=== PATIENT | male | born 1970 | race Two or more races ===

== ENCOUNTER 2021-11-22 19:31 | Inpatient (IN) | payer MEDICAID, OTHER ==
[~2021-11-22] VITALS: Ht 160 cm; Wt 72.5 kg
[~2021-11-22 19:31] MED LIST: AGELESS MALE PO; FORMULA 303; LOPE2CAP PO; MULTCAP45; PAXIL PO; TRAM50TA2 PO
[2021-11-22] MEDS ORDERED: ATROPINE SULFATE 1 MG/1 ML VIAL ONE (19:53)
[2021-11-22] MEDS ORDERED: ATROPINE SULF 1 MG/10ml SYR IV ONE (20:15)
[2021-11-22] MEDS ORDERED: PANTOPRAZOLE 80 MG in SODIUM CHL 0.9% 100 ML IV ONE (20:30)
[2021-11-22] MEDS ORDERED: PANTOPRAZOLE 40mg/50ML NS AE 50 ML IV ONE (20:30)
[2021-11-22 20:32] LABS: Eosinophils # (auto) 0 10 ^3/uL (0-0.8); Hemoglobin 9.7 g/dL (13.5-17.5)
[2021-11-22 20:34] LABS: Basophils # (auto) 0 10 ^3/uL (0-0.2); Basophils % (auto) 0.4 % (0.0-2.0); Eosinophils % (auto) 0.1 % (0.0-7.0); Hematocrit 30.5 % (41.0-53.0); Lymphocytes # (auto) 2.4 10 ^3/uL (0.4-5.4); Lymphocytes % (auto) 22.9 % (10.0-50.0); Mean Corpuscular Hemoglobin 24.6 pg (28.0-32.0); Mean Corpuscular Hgb Conc. 31.7 g/dL (32.0-36.0); Mean Corpuscular Volume 77.6 fL (80.0-100.0); Monocytes # (auto) 0.9 10 ^3/uL (0-1.3); Monocytes % (auto) 8.4 % (0.0-12.0); Neutrophils # (auto) 7.2 10 ^3/uL (1.6-8.6); Neutrophils % (auto) 68.2 % (37.0-80.0); Nucleated Red Blood Cells % 0.1 %; Red Blood Cells 3.93 10^6/uL (4.5-5.90); Red Cell Distribution Width 15.6 % (11.8-14.3); White Blood Cell 10.5 10^3/uL (4.4-10.8)
[2021-11-22 20:49] LABS: INR 1.13 (0.9-1.15); Partial Thromboplastin Time 24.7 sec (23.6-33.0)
[2021-11-22 20:50] LABS: Albumin 2.9 g/dL (3.4-5.0); Calcium 7.6 mg/dL (8.5-10.1); Potassium 3.2 mmol/L (3.5-5.1)
[2021-11-22 20:52] LABS: BUN/Creatinine Ratio 22.4
[2021-11-22 20:54] LABS: Bilirubin, Total 0.3 mg/dL (0.2-1.0); Total Protein 5.7 g/dL (6.4-8.2)
[2021-11-22] MEDS ORDERED: SODIUM CHLORIDE 0.9% 1,000 ML IV ONE (22:00)
[2021-11-22 23:14] LABS: Urine Bacteria NONE SEEN /hpf (None Seen); Urine Blood 1+ /uL (Negative); Urine Mucus FEW (None Seen); Urine Specific Gravity 1.039 (1.001-1.035); Urine WBC 2 /hpf (0 - 3)
[2021-11-22 23:36] LABS: Hemoglobin 9.3 g/dL (13.5-17.5)
[2021-11-22 23:38] LABS: Hematocrit 29.8 % (41.0-53.0)
[2021-11-23] MEDS ORDERED: fentaNYL CITRATE 100 MCG/2 ML VL IV ONE (03:45)
[2021-11-23] MEDS ORDERED: SODIUM CHLORIDE 0.9% 1,000 ML IV ONE (05:30)
[2021-11-23] MEDS ORDERED: NITROGLYCERIN 0.4 MG SL TAB SL PRN (06:45)
[2021-11-23] MEDS ORDERED: MORPHINE SULFATE INJ 2 MG/ml SYRG IV PRN (06:45)
[2021-11-23] MEDS ORDERED: ONDANSETRON HCL 4 MG/2 ML VIAL IV PRN (06:45)
[2021-11-23] MEDS ORDERED: CALCIUM GLUC 1,000mg/50ml-NS 50 ML IV ONE (06:45)
[2021-11-23] MEDS ORDERED: POTASSIUM CHL 20 Meq TABLET PO ONE (06:45)
[2021-11-23] MEDS ORDERED: KETOROLAC TROMETH 30 MG/ML 1ML VIAL IV ONE ×2 (09:00→23:00)
[2021-11-23] MEDS: PANTOPRAZOLE 40 MG TAB PO SCH (09:26)
[2021-11-23] MEDS: lamoTRIgine 25 MG TAB PO SCH ×2 (09:29→22:01)
[2021-11-23] MEDS: AZITHROMYCIN 500MG/ 250ML 250 ML IV SCH (09:37)
[2021-11-23] MEDS ORDERED: lamoTRIgine 25 MG TAB PO SCH (10:00)
[2021-11-23] MEDS: OXYCODONE W/ ACETAMINOPHEN 5/325MG TABLET PO PRN ×2 (13:53→18:06)
[2021-11-23 13:55] LABS: Alcohol, Urine < 3.0 mg/dL (0-10); Amphetamine Screen, Urine NEGATIVE (NEGATIVE); Barbiturate Scree,Urine NEGATIVE (NEGATIVE); Benzodiazephine Screen, Urine NEGATIVE (NEGATIVE); Cannabinoid Screen, Urine POSITIVE (NEGATIVE); Cocaine Screen, Urine NEGATIVE (NEGATIVE); Phencyclidine Screen, Urine NEGATIVE (NEGATIVE)
[2021-11-23 14:03] LABS: Opiate Scree,Urine POSITIVE (NEGATIVE)
[2021-11-23 17:33] VITALS: BP 132/85
[2021-11-23 17:52] VITALS: BP 132/85
[2021-11-23] MEDS ORDERED: PERCOT PO (18:53)
[2021-11-23] MEDS ORDERED: OXY20CRT PO (18:53)
[2021-11-23] MEDS ORDERED: LORazepam 2MG/ML-1ML VIAL IV PRN (19:30)
[2021-11-23] MEDS ORDERED: HYDROcodone-ACET 10/325MG TAB PO PRN (19:45)
[2021-11-23 22:00] VITALS: BP 118/71
[2021-11-24] MEDS ORDERED: TEMAZEPAM 15 MG CAP PO ONE ×2 (01:00→21:15)
[2021-11-24] MEDS ORDERED: OXYCODONE W/ ACETAMINOPHEN 5/325MG TABLET PO PRN (02:30)
[2021-11-24 05:00] VITALS: BP 111/73
[2021-11-24] MEDS: OXYCODONE W/ ACETAMINOPHEN 5/325MG TABLET PO PRN ×3 (05:10→16:19)
[2021-11-24 05:59] LABS: Basophils # (auto) 0.1 10 ^3/uL (0-0.2); Eosinophils # (auto) 0.1 10 ^3/uL (0-0.8); Monocytes # (auto) 0.6 10 ^3/uL (0-1.3); White Blood Cell 7.9 10^3/uL (4.4-10.8)
[2021-11-24 06:01] LABS: Hematocrit 30.4 % (41.0-53.0); Hemoglobin 9.8 g/dL (13.5-17.5); Lymphocytes # (auto) 2.8 10 ^3/uL (0.4-5.4); Lymphocytes % (auto) 36.1 % (10.0-50.0); Mean Corpuscular Hemoglobin 24.6 pg (28.0-32.0); Mean Corpuscular Hgb Conc. 32.2 g/dL (32.0-36.0); Mean Corpuscular Volume 76.5 fL (80.0-100.0); Monocytes % (auto) 7.3 % (0.0-12.0); Neutrophils # (auto) 4.3 10 ^3/uL (1.6-8.6); Neutrophils % (auto) 54.6 % (37.0-80.0); Nucleated Red Blood Cells % 0.2 %; Red Blood Cells 3.97 10^6/uL (4.5-5.90); Red Cell Distribution Width 15.6 % (11.8-14.3)
[2021-11-24 06:15] LABS: Calcium 8.3 mg/dL (8.5-10.1); Potassium 3.3 mmol/L (3.5-5.1)
[2021-11-24 06:20] LABS: BUN/Creatinine Ratio 15.1; Bilirubin, Total 0.3 mg/dL (0.2-1.0); Total Protein 6.1 g/dL (6.4-8.2)
[2021-11-24 09:00] VITALS: BP 135/88
[2021-11-24] MEDS: PANTOPRAZOLE 40 MG TAB PO SCH (10:44)
[2021-11-24] MEDS: lamoTRIgine 25 MG TAB PO SCH ×2 (10:45→21:49)
[2021-11-24] MEDS: AZITHROMYCIN 500MG/ 250ML 250 ML IV SCH (10:50)
[2021-11-24 13:00] VITALS: BP 132/78
[2021-11-24 16:40] VITALS: BP 132/87
[2021-11-24] MEDS ORDERED: TEMAZEPAM 15 MG CAP PO PRN (21:45)
[2021-11-24] MEDS: oxyCODONE ER 20 MG TAB PO SCH (21:50)
[2021-11-24 22:00] VITALS: BP 134/88
[2021-11-25] MEDS: OXYCODONE W/ ACETAMINOPHEN 5/325MG TABLET PO PRN ×2 (03:19→13:52)
[2021-11-25 05:00] VITALS: BP 124/87
[2021-11-25 08:12] VITALS: BP 134/92
[2021-11-25] MEDS ORDERED: LIDOCAINE VISCOUS 2% 15ML UD ONE (08:40)
[2021-11-25] MEDS ORDERED: MORPHINE SULFATE 4 MG/ML SYR/VIAL IV PRN (09:15)
[2021-11-25] MEDS ORDERED: ePHEDrine SULFATE 50 MG/ML AMP IV PRN (09:15)
[2021-11-25] MEDS ORDERED: MIDAZOLAM HCL 2MG/2ML 2ml VIAL (1mg/ml) IV PRN (09:15)
[2021-11-25] MEDS ORDERED: LABETALOL HCL 5 MG/ML 4ML SYRINGE IV PRN (09:15)
[2021-11-25] MEDS ORDERED: ONDANSETRON HCL 4 MG/2 ML VIAL IV PRN (09:15)
[2021-11-25] MEDS ORDERED: HYDROmorphone HCL 2 MG/ML VL/or syr IV PRN (09:15)
[2021-11-25] MEDS ORDERED: PANTOPRAZOLE 40 MG TAB PO SCH (10:00)
[2021-11-25] MEDS: lamoTRIgine 25 MG TAB PO SCH (10:28)
[2021-11-25] MEDS: SUCRALFATE 1 GM/10 ML ORAL SUSP PO SCH ×2 (10:28→16:13)
[2021-11-25] MEDS: oxyCODONE ER 20 MG TAB PO SCH (10:29)
[2021-11-25] MEDS: AZITHROMYCIN 500MG/ 250ML 250 ML IV SCH (10:29)
[2021-11-25] MEDS ORDERED: SUCR1TAB PO (10:49)
[2021-11-25] MEDS ORDERED: PANT40T PO (10:49)
[2021-11-25] MEDS ORDERED: OXY10CRT PO (10:49)
[2021-11-25 12:39] VITALS: BP 135/86
[2021-11-25] MEDS ORDERED: POTASSIUM CHL 20 Meq TABLET PO ONE (15:15)
== END 2021-11-25 17:00 | disposition home or self-care (01) | DRG 201 ==
LOC: ER 19:31 → TELE 11-23 06:32 → TELE-WESTW 11-23 14:57
PROVIDERS: ADMIT Nurse Practitioner; ATTEND Family Medicine
PROC: 0DB78ZX Excision of Stomach, Pylorus, Via Natural or Artificial Opening Endoscopic, Diagnostic (ICD-10-PCS; principal; 2021-11-25 08:48)
DX: R00.1 Bradycardia, unspecified (principal); G93.41 Metabolic encephalopathy; E43 Unspecified severe protein-calorie malnutrition; J18.9 Pneumonia, unspecified organism; I95.9 Hypotension, unspecified; K26.9 Duodenal ulcer, unspecified as acute or chronic, without hemorrhage or perforation; E86.0 Dehydration; D64.9 Anemia, unspecified; D50.9 Iron deficiency anemia, unspecified; F17.200 Nicotine dependence, unspecified, uncomplicated; E87.6 Hypokalemia; M51.36 Other intervertebral disc degeneration, lumbar region; Z20.822 Contact with and (suspected) exposure to COVID-19; M50.30 Other cervical disc degeneration, unspecified cervical region; K29.80 Duodenitis without bleeding; K29.70 Gastritis, unspecified, without bleeding; F32.A Depression, unspecified; F41.9 Anxiety disorder, unspecified; M19.90 Unspecified osteoarthritis, unspecified site; G89.29 Other chronic pain; N40.0 Benign prostatic hyperplasia without lower urinary tract symptoms; Z83.3 Family history of diabetes mellitus; Z68.28 Body mass index [BMI] 28.0-28.9, adult; Z87.442 Personal history of urinary calculi
CPT/HCPCS: 36415; 43239; 70450; 70551; 71045; 71260; 71275; 72148; 74177; 80053; 80307; 81001; 83605; 83690; 83735; 83880; 84443; 84484; 85014; 85018; 85025; 85379; 85610; 85730; 86850; 86900; 86901; 93005; 93306; 93970; 95819; 96361; 96365; 96367; 96368; 96375; 99291; C9113; G0378; J0461; J1885

== ENCOUNTER 2021-11-27 20:52 | Emergency (ER) | payer MEDICAID ==
[~2021-11-27] VITALS: Ht 170.2 cm; Wt 72.6 kg
[~2021-11-27 20:52] MED LIST changes: +OXY10CRT PO; +OXY20CRT PO; +PANT40T PO; +PERCOT PO; +SUCR1TAB PO
[2021-11-27 22:11] LABS: Basophils # (auto) 0.1 10 ^3/uL (0-0.2); Eosinophils # (auto) 0 10 ^3/uL (0-0.8); Hemoglobin 7.9 g/dL (13.5-17.5); Lymphocytes # (auto) 2.6 10 ^3/uL (0.4-5.4); Monocytes # (auto) 0.7 10 ^3/uL (0-1.3)
[2021-11-27 22:13] LABS: Basophils % (auto) 0.7 % (0.0-2.0); Eosinophils % (auto) 0.2 % (0.0-7.0); Hematocrit 25.4 % (41.0-53.0); Mean Corpuscular Hemoglobin 24.1 pg (28.0-32.0); Mean Corpuscular Volume 77.6 fL (80.0-100.0); Neutrophils # (auto) 8.4 10 ^3/uL (1.6-8.6); Neutrophils % (auto) 71.1 % (37.0-80.0); Nucleated Red Blood Cells % 0.2 %; Red Blood Cells 3.27 10^6/uL (4.5-5.90); Red Cell Distribution Width 16.2 % (11.8-14.3); White Blood Cell 11.8 10^3/uL (4.4-10.8)
[2021-11-27 22:35] LABS: BUN/Creatinine Ratio 36.1; Potassium 3.6 mmol/L (3.5-5.1)
[2021-11-27 22:36] LABS: Albumin 3.2 g/dL (3.4-5.0); Calcium 8.6 mg/dL (8.5-10.1); Magnesium 1.8 mg/dL (1.6-2.6)
[2021-11-27 22:39] LABS: Bilirubin, Total 0.2 mg/dL (0.2-1.0); Total Protein 6.2 g/dL (6.4-8.2)
[2021-11-27 23:47] LABS: INR 1.06 (0.9-1.15)
[2021-11-28 01:45] VITALS: BP 133/86
== END 2021-11-28 02:33 | disposition left against medical advice (07) ==
LOC: EDBD 20:52 → ER 20:52
DX: R55 Syncope and collapse (principal); F41.9 Anxiety disorder, unspecified; F32.9 Major depressive disorder, single episode, unspecified; F17.210 Nicotine dependence, cigarettes, uncomplicated; Z87.442 Personal history of urinary calculi; Z53.21 Procedure and treatment not carried out due to patient leaving prior to being seen by health care provider
CPT/HCPCS: 36415; 70450; 71045; 72125; 80053; 83735; 84484; 85025; 85610; 85730

== ENCOUNTER 2024-06-22 08:36 | Inpatient (IN) | payer MEDICAID ==
[~2024-06-22] VITALS: Ht 172.7 cm; Wt 72.7 kg
[2024-06-22 09:22] LABS: Basophils # (auto) 0.1 10 ^3/uL (0-0.2)
--- NOTE | 2024-06-22 09:22 | ED.PDOC ---
Altered Mental Status HPI Comments 53-year-old male brought in by EMS presents with a chief complaint of altered level of consciousness x onset this morning. According to EMS family found patient altered this morning. Last known well time was this morning at 1:00 a.m., patient is now presenting A&O x2. Is normally GCS of 15 at baseline. Presenting with expressive aphasia, confused, restless, is tachycardic, and is shaking. Patient unable to provide clear details of his current symptoms or timeline of events leading up to his arrival. Chief Complaint: ALOC Time Seen by MD: 08:50 Primary Care Provider: UNKNOWN Reviewed Notes: Medications, Allergies Allergies: Coded Allergies: NO KNOWN ALLERGIES (Unverified , 01/14/11) Home Meds Active Scripts Oxycodone Hcl (OxyCONTIN ER Tablet) 10 Mg Tb, 2 TAB PO BID, #40 TAB Prov:JONNIE CASAREZ MD 11/25/21 Sucralfate (Sucralfate) 1 Gm Tab, 1 GM PO Q6HR, #60 TAB Prov:JONNIE CASAREZ MD 11/25/21 Pantoprazole Sodium Sesquihydr (Pantoprazole Sodium) 40 Mg Tab, 40 MG PO BID, #60 TAB Prov:JONNIE CASAREZ MD 11/25/21 Reported Medications Oxycodone W/ Acetaminophen (Percocet 5/325MG) 1 Tab Tb, 1 TAB PO BID, #60 TAB 11/23/21 Oxycodone Hcl (OxyCONTIN ER Tablet) 20 Mg Tb, 30 MG PO BID, TAB 11/23/21 Loperamide Hcl (Loperamide Hcl) 2 Mg Cap, 2 MG PO PRN 11/08/11 Multiple Vitamin (Multivitamins) Cap 11/08/11 [Formula 303] No Conflict Check 11/08/11 [Ageless Male] 800 MG CAP No Conflict Check, 800 MG PO DAILY 11/08/11 [Paxil] 40 MG TAB No Conflict Check, 40 MG PO DAILY 11/08/11 Tramadol Hcl (Tramadol Hcl) 50 Mg Tab, 50 MG PO PRN 11/08/11 Information Source: Emergency Med Personnel Mode of Arrival: EMS Severity: Moderate, Unable to Care for Self Timing: Hours Duration: Since onset Prehospital treatment: None Quality: Decreased Alertness, Change in Behavior, Confusion Recent: None History of: CVA Associated Signs and Symptoms: None Past Medical History PAST MEDICAL HISTORY: Anxiety, Arthritis, CVA, Depression, Kidney Stones Surgical History: Denies all surgeries Family History Family History: Unknown Social History Smoker: Cigarettes, Greater Than 1 Pack/Day Alcohol: Occasionally Drugs: Denies Drug Use Lives In: Home Constitutional: denies: chills, diaphoresis, fatigue, fever, malaise, sweats, weakness, others EENTM: denies: blurred vision, double vision, ear bleeding, ear discharge, ear drainage, ear pain, ear ringing, eye pain, eye redness, hearing loss, mouth pain, mouth swelling, nasal discharge, nose bleeding, nose congestion, nose pain, photophobia, tearing, throat pain, throat swelling, voice changes, others Respiratory: denies: cough, hemoptysis, orthopnea, SOB at rest, shortness of breath, SOB with excertion, stridor, wheezing, others Cardiovascular: denies: chest pain, dizzy spells, diaphoresis, Dyspnea on exertion, edema, irregular heart beat, left arm pain, lightheadedness, palpitations, PND, syncope, others Gastrointestinal: denies: abdomen distended, abdominal pain, blood streaked bowels, constipated, diarrhea, dysphagia, difficulty swallowing, hematemesis, melena, nausea, poor appetite, poor fluid intake, rectal bleeding, rectal pain, vomiting, others Genitourinary: denies: burning, dysuria, flank pain, frequency, hematuria, incontinence, penile discharge, penile sore, pain, testicle pain, testicle swelling, urgency, others Neurological: denies: dizziness, fainting, headache, left sided numbness, left sided weakness, numbness, paresthesia, pre-existing deficit, right sided numbness, right sided weakness, seizure, speech problems, tingling, tremors, weakness, others Musculoskeletal: denies: back pain, gout, joint pain, joint swelling, muscle p ain, muscle stiffness, neck pain, others Integumetry: denies: bruises, change in color, change in hair/nails, dryness, laceration, lesions, lumps, rash, wounds, others Allergic/Immunocompromised: denies: Difficulty Healing, Frequent Infections, Hives, Itching, others Hematologic/Lymphatic: denies: anemia, blood clots, easy bleeding, easy bruising, swollen glands, others Endocrine: denies: excessive hunger, excessive sweating, excessive thirst, excessive urination, flushing, intolerance to cold, intolerance to heat, unexplained weight gain, unexplained weight loss, others Psychiatric: denies: anxiety, bipolar disorder, depression, hopeless, panic disorder, schizophrenia, sleepless, suicidal, others Unable to Obtain due to: Altered Mental Status All Other Systems: Reviewed and Negative Physical Exam General Appearance: No Apparent Distress, Normal HEENT: Normal ENT Inspection, Pharynx Normal, TMs Normal Neck: Full Range of Motion, Non-Tender, Normal, Normal Inspection Respiratory: Chest Non-Tender, Lungs Clear, No Accessory Muscle Use, No Respiratory Distress, Normal Breath Sounds Cardiovascular: No Edema, No JVD, No Murmur, No Gallop, Normal Peripheral Pulses, Tachycardia Breast Exam: Deferred Gastrointestinal: No Organomegaly, Non Tender, No Pulsatile Mass, Normal Bowel Sounds, Soft Genitalia: Deferred Pelvic: Deferred Rectal: Deferred Extremities: No calf tenderness, Normal capillary refill, Normal inspection, Normal range of motion, Non-tender, No pedal edema Musculoskeletal : Apperance: Normal Neurologic: Aphasia (EXPRESSIVE), Motor Weakness Cerebellar Function: Normal Reflexes: Normal Skin: Dry, Normal Color, Warm Lymphatic: No Adenopathy Was a procedure done? Was a procedure done?: No Differential Diagnosis (ALOC) Differential Diagnosis: Dehydration, Hypoglycemia, Encephalopathy, Meningitis, Sepsis, Hypoxemia, Seizure, Closed Head Injury, CVA, Mass Lesion, SAH, Drug Overdose, ETOH Intoxication X-Ray, Labs, Meds, VS Vital Signs Date Time Temp Pulse Resp B/P (MAP) Pulse Ox O2 Delivery O2 Flow Rate FiO2 06/22/24 09:43 55 06/22/24 09:39 65 16 137/84 (101) 97 06/22/24 09:39 65 16 97 Room Air* 0 21 06/22/24 08:40 98.7 71 16 144/73 (96) 98 Lab Test 06/22/24 10:05 06/22/24 09:20 06/22/24 09:05 Range/Units Troponin I High Sensitivity < 3 L < 3 L </=54 ng/L POC Glucose 102 70-106 mg/dl White Blood Count 7.2 4.4-10.8 10^3/uL Red Blood Count 5.02 4.5-5.90 10^6/uL Hemoglobin 12.3 L 13.5-17.5 g/dL Hematocrit 39.0 L 41.0-53.0 % Mean Corpuscular Volume 77.6 L 80.0-100.0 fL Mean Corpuscular Hemoglobin 24.4 L 28.0-32.0 pg Mean Corpuscular Hemoglobin Concent 31.4 L 32.0-36.0 g/dL Red Cell Distribution Width 17.9 H 11.8-14.3 % Platelet Count 396 140-450 10^3/uL Mean Platelet Volume 6.6 L 6.9-10.8 fL Neutrophils (%) (Auto) 58.7 37.0-80.0 % Lymphocytes (%) (Auto) 30.0 10.0-50.0 % Monocytes (%) (Auto) 8.5 0.0-12.0 % Eosinophils (%) (Auto) 1.5 0.0-7.0 % Basophils (%) (Auto) 1.3 0.0-2.0 % Neutrophils # (Auto) 4.2 1.6-8.6 10 ^3/uL Lymphocytes # (Auto) 2.2 0.4-5.4 10 ^3/uL Monocytes # (Auto) 0.6 0-1.3 10 ^3/uL Eosinophils # (Auto) 0.1 0-0.8 10 ^3/uL Basophils # (Auto) 0.1 0-0.2 10 ^3/uL Nucleated Red Blood Cells 0.3 % Prothrombin Time 10.9 9.3-11.8 sec Prothrombin Time INR 1.03 0.9-1.15 Activated Partial Thromboplast Time 32.1 24.5-34.5 SEC Sodium Level 142 136-145 mmol/L Potassium Level 3.6 3.5-5.1 mmol/L Chloride Level 111 H 98-107 mmol/L Carbon Dioxide Level 24 20-31 mmol/L Anion Gap 7 5-15 Blood Urea Nitrogen 6 L 9-23 mg/dL Creatinine 0.92 0.700-1.30 mg/dL Glomerular Filtration Rate Calc 99 >90 mL/min BUN/Creatinine Ratio 6.5 L 10.0-20.0 Serum Glucose 111 H 74-106 mg/dL Calcium Level 10.1 8.7-10.4 mg/dL Magnesium Level 2.0 1.6-2.6 mg/dL Total Bilirubin 0.6 0.2-1.0 mg/dL Aspartate Amino Transferase (AST) 17 13-40 U/L Alanine Aminotransferase (ALT) 10 7-40 U/L Alkaline Phosphatase 111 46-116 U/L B-Type Natriuretic Peptide 21.45 0-100 pg/mL Total Protein 6.9 5.7-8.2 g/dL Albumin 4.5 3.2-4.8 g/dL Time of 1ST Reevaluation: 09:20 Reevaluation 1ST: Unchanged Time of 2ND Reevaluation: 12:18 Reevaluation 2ND: Unchanged (pt is confused, and restless) Patient Education/Counseling: Other (encephalopathic) Family Education/Counseling: No Family Present Comments I reviewed the following notes from patient's past medical encounters: The following tests were ordered, and results were reviewed by me: (Labs, XY, EKG) Additional Information was gathered from interviewing the following independent historians: (Family, Other Providers, EMT) I reviewed and agreed with the following test results read by other providers: (X-Ray, CT, US) I discussed treatment and results with medical personnel and: (Consultants, Family) Additional Information teleneurology assessed the pt and feels pt is encephalopathic, not having a stroke. he will be admitted for further evaluation Departure 1 Departure Time of Disposition: 12:19 Impression: Primary Impression: Altered mental status Qualified Codes: R41.0 - Disorientation, unspecified Additional Impression: Toxic encephalopathy Qualified Codes: G92.9 - Unspecified toxic encephalopathy Disposition: 09 ADMITTED INPATIENT Admit to: Tele Condition: Serious Critical Care Note Critical Care Time?: Yes (1 hr-critical care time only) Critical care comment: Due to concerns for patients condition deteriorating, the care required my highest level of attention and readiness to intervene. I assessed the patient, reviewed the medical records, ordered the appropriate tests and treatments, then reassessed for results and responsiveness. I communicated with medical personnel and consultants and formulated a plan of care. Total critical care time excludes any procedures Stability Stability form required: No I personally scribed for JOYCE SAGASTUME MD ([email or web address]) on 06/22/24 at 09:22. Electronically submitted by Slick Lucero ([email or web address]). JOYCE SAGASTUME MD Jun 22, 2024 09:22
--- NOTE | 2024-06-22 09:25 | DVH ---
CT STROKE CTH INDICATION: cva expressive aphasia EXAM DATE: 06/22/2024 09:04 AM COMPARISON: HEAD WITHOUT CONTRAST on DOS: 11/27/21 RADIATION DOSE: CTDIvol: 59 mGy, DLP: 1194 mGy*cm PROCEDURE: CT scans of the head were obtained from the vertex to the skull base. Sagittal and coronal reconstructions were provided. All CT scans at this medical facility are performed using dose modulation techniques as appropriate t o a performed exam including the following: Automated exposure control was utilized; adjustment of th e MA and/or KV according to patient size; and use of iterative reconstruction technique. FINDINGS: There is sulcal and ventricular prominence. The brain otherwise shows normal morphology a nd williamson-white matter differentiation, without intracranial hemorrhage, extra-axial fluid collection, mass effect or acute large vessel infarct.The basal cisterns are patent. The skull and visible facial bones are intact. The paranasal sinuses, mastoid air cells and middle ear cavities are well-aerated. The soft tissues of the scalp are unremarkable. IMPRESSION: No acute intracranial abnormality.
--- NOTE | 2024-06-22 09:26 | DVH ---
CHEST RADIOGRAPH Indication: cva expressive aphasia Technique: Single frontal view of the chest was obtained COMPARISON: CHEST XRAY 1 VIEW on DOS: 11/27/21, CXR1 on DOS: 11/27/21, CXR1 on DOS: 11/22/21 FINDINGS: No pneumothorax, pulmonary edema, or consolidative infiltrates. Head and neck tissues partially obscu re the lung apices. The heart is upper limits of normal in size. IMPRESSION: No acute intrathoracic process.
[2024-06-22 09:27] LABS: Basophils % (auto) 1.3 % (0.0-2.0); Eosinophils # (auto) 0.1 10 ^3/uL (0-0.8); Eosinophils % (auto) 1.5 % (0.0-7.0); Hemoglobin 12.3 g/dL (13.5-17.5); Lymphocytes # (auto) 2.2 10 ^3/uL (0.4-5.4); Mean Corpuscular Hemoglobin 24.4 pg (28.0-32.0); Mean Corpuscular Hgb Conc. 31.4 g/dL (32.0-36.0); Mean Corpuscular Volume 77.6 fL (80.0-100.0); Monocytes # (auto) 0.6 10 ^3/uL (0-1.3); Monocytes % (auto) 8.5 % (0.0-12.0); Neutrophils # (auto) 4.2 10 ^3/uL (1.6-8.6); Neutrophils % (auto) 58.7 % (37.0-80.0); Nucleated Red Blood Cells % 0.3 %; Platelet Count (auto) 396 10^3/uL (140-450); Red Blood Cells 5.02 10^6/uL (4.5-5.90); Red Cell Distribution Width 17.9 % (11.8-14.3); White Blood Cell 7.2 10^3/uL (4.4-10.8)
[2024-06-22 09:34] LABS: Alanine Aminotransferase 10 U/L (7-40); Albumin 4.5 g/dL (3.2-4.8); Alkaline Phosphatase 111 U/L (46-116); Anion Gap 7 (5-15); Aspartate Aminotransferase 17 U/L (13-40); BUN/Creatinine Ratio 6.5 (10.0-20.0); Calcium 10.1 mg/dL (8.7-10.4); Carbon Dioxide 24 mmol/L (20-31); Potassium 3.6 mmol/L (3.5-5.1); Sodium 142 mmol/L (136-145)
[2024-06-22 09:35] LABS: Bilirubin, Total 0.6 mg/dL (0.2-1.0); Blood Urea Nitrogen 6 mg/dL (9-23); Chloride 111 mmol/L (98-107); Glucose 111 mg/dL (74-106); Total Protein 6.9 g/dL (5.7-8.2)
[2024-06-22 09:39] VITALS: PULSE 65; RESP 16; O2SAT 97
--- NOTE | 2024-06-22 09:44 | ECG ---
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
[2024-06-22 10:31] LABS: INR 1.03 (0.9-1.15); Partial Thromboplastin Time 32.1 SEC (24.5-34.5); Prothrombin Time 10.9 sec (9.3-11.8)
[2024-06-22] MEDS: ASPirin 325 MG TAB PO ONE (11:21)
--- NOTE | 2024-06-22 13:49 | BSKYNEURO ---
[facility] Note # Demographics Consult Type: Acute Stroke Level 2 (4.5-24 hrs) Patient Location: Emergency Room First Name: SCOTTY Last Name: CHELLE Date of : 1970 Age: 53 Gender: Male Facility: [facility] Time of Initial Page (): 06/22/2024, 08:53 Time of Return Call (): 06/22/2024, 08:53 # HPI History: [id number] Patient is coming to ER for speech changes; he was not able to communicate with family and was brought for difficulty with word finding. # Scores Time of exam and NIHSS (): 06/22/2024, 12:07 Level of Consciousness 1a: [1] = Not alert; but arousable by minor stim LOC Questions 1b: [2] = Answers neither correctly LOC Commands 1c: [0] = Performs both tasks correctly Best Gaze 2: [0] = Normal Visual 3: [0] = No visual loss Facial Palsy 4: [0] = Normal symmetrical movements Motor Arm Left 5a: [0] = No drift Motor Arm Right 5b: [0] = No drift Motor Leg Left 6a: [0] = No drift Motor Leg Right 6b: [0] = No drift Limb Ataxia 7: [0] = Absent Sensory 8: [0] = Normal Best Language 9: [2] = Severe aphasia Dysarthria 10: [2] = Severe dysarthria Extinction and Inattention 11: [0] = No abnormality NIHSS Total: 7 # Assessment Impression: - Altered Mental Status - Stroke Mimic Patient looks encephalopathic; likely metabolic/infectious. If no other obvious cause of encephalopathy and patient is not improving, will need MRI brain w/o contrast and EEG # Plan Thrombolytic/Intervention: NOT IV Thrombolysis or IA Intervention candidate Intraarterial Exclusion: - no large vessel occlusion (LVO) Thrombolytic/Intraarterial Exclusion: - IV thrombolytic and IA intervention considered but not recommended as this patient's symptoms are not clinically consistent with an assumed diagnosis of stroke Labs: - Ammonia - urine drug screen - ua - CBC - comprehensive metabolic panel - ESR - ABG Imaging: (urgency: routine): - MRI Brain without contrast Diagnostic Test: - EEG Other: - If patient has any neurological deterioration please call me back immediately - I have discussed my recommendations with the referring provider - would not pursue stroke work-up if MRI is negative - telemetry monitoring # Logistics Attestation of consult completion: The patient is located at: [facility]. Facility staff participated in the visit. I performed this telemedicine visit from my offsite office utilizing interactive 2 way audio and visual telecommunication technology. Total time spent in telemedicine encounter: I spent 10 minutes reviewing clinical data and/or imaging, obtaining history, examining the patient, communicating with the onsite care team, and in preparation of this report. # Demographics First Name: SCOTTY Last Name: CHELLE Facility: [facility] Yes FOREIGN CARY MD Jun 22, 2024 13:48
[2024-06-22] MEDS: SODIUM CHLORIDE 0.9% 1,000 ML IV SCH (15:45)
[2024-06-22] MEDS ORDERED: ONDANSETRON HCL 4 MG/2 ML VIAL IV PRN (15:45)
--- NOTE | 2024-06-22 15:52 | DVHHP2 ---
History of Present Illness Reason for Visit: altered History of Present Illness This 53 year old male presents in the ED with a chief complaint of ALOC. The patient is alert and oriented to name and date of but somehow confused, very sleepy, and unable to keep eyes open. According to nursing staff, the patient was last seen alert and oriented this morning around 1:00 a.m. the patient change of mentation started early this morning, sister states that the patient started taking some type of medications. Past Medical History Anxiety, arthritis, CVA, depression, kidney stones Past Surgical History Denies Past Social History Unknown Review of Systems Constitutional: Yes: Malaise; No: Fever, Chills, Sweats, Weakness, Other Eyes: No: Pain, Vision change, Conjunctivae inflammation, Eyelid inflammation, Other, Redness ENT: No: Ear pain, Ear discharge, Nose pain, Nose discharge, Nose congestion, Mouth pain, Mouth swelling, Throat pain, Throat swelling, Other Respiratory: No: Cough, Dry, Shortness of breath, SOB with excertion, Wheezing, Hemoptysis, Pleuritic Pain, Sputum, Wheezing, Other Cardiovascular: No: Chest Pain, Palpitations, Orthopnea, Paroxysmal Noc. Dyspnea, Edema, Lt Headedness, Other Gastrointestinal: No: Nausea, Vomiting, Abdominal Pain, Diarrhea, Constipation, Melena, Hematochezia, Other Genitourinary: No Dysuria, No Frequency, No Incontinence, No Hematuria, No Retention, No Other Musculoskeletal: No: other, neck pain, shoulder pain, arm pain, back pain, hand pain, leg pain, foot pain Skin: No: Rash, Lesions, Jaundice, Bruising, Other Neurological: Confusion; No: Weakness, Numbness, Incoordination, Change in speech, Seizures, Other Allergies: Coded Allergies: NO KNOWN ALLERGIES (Unverified , 01/14/11) Exam Vital Signs Vital Signs Date Time Temp Pulse Resp B/P (MAP) Pulse Ox O2 Delivery O2 Flow Rate FiO2 06/22/24 14:00 45 19 179/91 (120) 99 06/22/24 09:39 Room Air* 0 21 06/22/24 08:40 98.7 General Appearance: mild distress HEENT: Atraumatic, PERRLA, Mucous membr. moist/pink Respiratory: Clear to auscultation, Normal air movement Cardiovascular: Regular rate, Normal S1, Normal S2 Abdominal: Normal bowel sounds, Soft, No tenderness Extremities: No clubbing, No cyanosis, No edema, Normal pulses Skin: No rashes, No breakdown, No significant lesion Neuro: Other (Confused) Labs/Xrays Labs Test 06/22/24 12:57 06/22/24 10:05 06/22/24 09:20 06/22/24 09:05 Range/Units Ammonia 15 11-32 umol/L Troponin I High Sensitivity < 3 L </=54 ng/L POC Glucose 102 70-106 mg/dl White Blood Count 7.2 4.4-10.8 10^3/uL Red Blood Count 5.02 4.5-5.90 10^6/uL Hemoglobin 12.3 L 13.5-17.5 g/dL Hematocrit 39.0 L 41.0-53.0 % Mean Corpuscular Volume 77.6 L 80.0-100.0 fL Mean Corpuscular Hemoglobin 24.4 L 28.0-32.0 pg Mean Corpuscular Hemoglobin Concent 31.4 L 32.0-36.0 g/dL Red Cell Distribution Width 17.9 H 11.8-14.3 % Platelet Count 396 140-450 10^3/uL Mean Platelet Volume 6.6 L 6.9-10.8 fL Neutrophils (%) (Auto) 58.7 37.0-80.0 % Lymphocytes (%) (Auto) 30.0 10.0-50.0 % Monocytes (%) (Auto) 8.5 0.0-12.0 % Eosinophils (%) (Auto) 1.5 0.0-7.0 % Basophils (%) (Auto) 1.3 0.0-2.0 % Neutrophils # (Auto) 4.2 1.6-8.6 10 ^3/uL Lymphocytes # (Auto) 2.2 0.4-5.4 10 ^3/uL Monocytes # (Auto) 0.6 0-1.3 10 ^3/uL Eosinophils # (Auto) 0.1 0-0.8 10 ^3/uL Basophils # (Auto) 0.1 0-0.2 10 ^3/uL Nucleated Red Blood Cells 0.3 % Prothrombin Time 10.9 9.3-11.8 sec Prothrombin Time INR 1.03 0.9-1.15 Activated Partial Thromboplast Time 32.1 24.5-34.5 SEC Sodium Level 142 136-145 mmol/L Potassium Level 3.6 3.5-5.1 mmol/L Chloride Level 111 H 98-107 mmol/L Carbon Dioxide Level 24 20-31 mmol/L Anion Gap 7 5-15 Blood Urea Nitrogen 6 L 9-23 mg/dL Creatinine 0.92 0.700-1.30 mg/dL Glomerular Filtration Rate Calc 99 >90 mL/min BUN/Creatinine Ratio 6.5 L 10.0-20.0 Serum Glucose 111 H 74-106 mg/dL Calcium Level 10.1 8.7-10.4 mg/dL Magnesium Level 2.0 1.6-2.6 mg/dL Total Bilirubin 0.6 0.2-1.0 mg/dL Aspartate Amino Transferase (AST) 17 13-40 U/L Alanine Aminotransferase (ALT) 10 7-40 U/L Alkaline Phosphatase 111 46-116 U/L B-Type Natriuretic Peptide 21.45 0-100 pg/mL Total Protein 6.9 5.7-8.2 g/dL Albumin 4.5 3.2-4.8 g/dL PROCEDURE(s): CTH - STROKE CTH REASON: cva expressive aphasia ORDER NUMBER(s): [id number], ACCESSION NUMBER(s): [id number] CT STROKE CTH INDICATION: cva expressive aphasia EXAM DATE: 06/22/2024 09:04 AM COMPARISON: HEAD WITHOUT CONTRAST on DOS: 11/27/21 RADIATION DOSE: CTDIvol: 59 mGy, DLP: 1194 mGy*cm PROCEDURE: CT scans of the head were obtained from the vertex to the skull base. Sagittal and coronal reconstructions were provided. All CT scans at this medical facility are performed using dose modulation techniques as appropriate to a performed exam including the following: Automated exposure control was utilized; adjustment of the MA and/or KV according to patient size; and use of iterative reconstruction technique. FINDINGS: There is sulcal and ventricular prominence. The brain otherwise shows normal morphology and williamson-white matter differentiation, without intracranial hemorrhage, extra-axial fluid collection, mass effect or acute large vessel infarct.The basal cisterns are patent. The skull and visible facial bones are intact. The paranasal sinuses, mastoid air cells and middle ear cavities are well-aerated. The soft tissues of the scalp are unremarkable. IMPRESSION: No acute intracranial abnormality. Assessment/Plan Assessment/Plan #Altered level of consciousness # possible acute toxic encephalopathy Admit to telemetry unit CT of head reviewed Neurology consult completed Check for UDS Catalan catheter # depression, anxiety Hold medications # hx CVA Medical plan discussed with patient and RN Plan discussed with: Patient My Orders Orders - MARBELLA NELSON Procedure Category Date Status Time Urinalysis LAB 06/22/24 Logged 15:18 Drug Screen LAB 06/22/24 Logged 15:18 Insert Catalan Catheter CORNELIUS 06/22/24 Verified 15:33 Admit ADMIT 06/22/24 Verified 15:33 Code Status CODE 06/22/24 Verified 15:33 0.9% Ns 1000 Ml PHA 06/22/24 Verified 15:45 Ondansetron Hcl PHA 06/22/24 Verified (Zofran) 15:45 Enoxaparin Sodium PHA 06/23/24 Verified (Lovenox) 10:00 Fall Risk Precautions CORNELIUS 06/22/[address] 15:33 Complete Blood Count LAB 06/23/24 Verified 04:00 Comprehensive LAB 06/23/24 Verified Metabolic Panel 04:00 Cardiac DIET 06/22/24 Verified Diet-2gna,Lofat,Lochol Dinner Condition: Fair CORNELIUS 06/22/24 Verified 15:33 Date of Service: Jun 22, 2024 Billing Provider: MARBELLA NELSON Common Visit Codes: [id number] INP/OBS CARE (HIGH) MARBELLA NELSONP Jun 22, 2024 15:52
[2024-06-22] MEDS ORDERED: hydrALAZINE HCL 20 MG/ML VL IV PRN (16:00)
[2024-06-22 19:30] VITALS: PULSE 83; RESP 18; O2SAT 97
[2024-06-22] MEDS: HYDROcodone-ACET 5/325MG TAB PO PRN (21:48)
[2024-06-23 04:29] LABS: Basophils # (auto) 0 10 ^3/uL (0-0.2); Eosinophils # (auto) 0 10 ^3/uL (0-0.8); Eosinophils % (auto) 0.4 % (0.0-7.0); Mean Corpuscular Volume 76.8 fL (80.0-100.0)
[2024-06-23 04:32] LABS: Basophils % (auto) 0.6 % (0.0-2.0); Hematocrit 34.7 % (41.0-53.0); Hemoglobin 11.2 g/dL (13.5-17.5); Lymphocytes % (auto) 22.2 % (10.0-50.0); Mean Corpuscular Hemoglobin 24.8 pg (28.0-32.0); Mean Corpuscular Hgb Conc. 32.2 g/dL (32.0-36.0); Monocytes # (auto) 0.7 10 ^3/uL (0-1.3); Monocytes % (auto) 7.4 % (0.0-12.0); Neutrophils # (auto) 6.2 10 ^3/uL (1.6-8.6); Neutrophils % (auto) 69.4 % (37.0-80.0); Platelet Count (auto) 373 10^3/uL (140-450); Red Blood Cells 4.52 10^6/uL (4.5-5.90); Red Cell Distribution Width 17.3 % (11.8-14.3); White Blood Cell 8.9 10^3/uL (4.4-10.8)
[2024-06-23 04:52] LABS: Albumin 3.9 g/dL (3.2-4.8); Alkaline Phosphatase 95 U/L (46-116); Anion Gap 6 (5-15); Aspartate Aminotransferase 19 U/L (13-40); Bilirubin, Total 0.7 mg/dL (0.2-1.0); Calcium 9.6 mg/dL (8.7-10.4); Carbon Dioxide 23 mmol/L (20-31); Glucose 97 mg/dL (74-106); Potassium 3.5 mmol/L (3.5-5.1); Sodium 144 mmol/L (136-145); Total Protein 6.4 g/dL (5.7-8.2)
[2024-06-23 04:53] LABS: Blood Urea Nitrogen < 5 mg/dL (9-23); Chloride 115 mmol/L (98-107)
[2024-06-23 04:54] LABS: Alanine Aminotransferase < 9 U/L (7-40)
[2024-06-23 05:20] LABS: Urine Bacteria None Seen /hpf (None Seen)
[2024-06-23 05:38] LABS: Urine Blood Negative /uL (Negative); Urine Clarity Clear (Clear); Urine Color Light-Yellow (Yellow); Urine Mucus FEW (None Seen); Urine Protein, UAD Negative (Negative); Urine Squamous Epithelial Cell FEW /hpf (<5); Urine Urobilinogen Normal (Negative); Urine WBC 2 /hpf (0 - 3)
[2024-06-23 05:45] LABS: Amphetamine Screen, Urine Neg (NEGATIVE); Opiate Scree,Urine Pos (NEGATIVE)
[2024-06-23 05:48] LABS: Barbiturate Scree,Urine Neg (NEGATIVE); Benzodiazephine Screen, Urine Neg (NEGATIVE); Cannabinoid Screen, Urine Neg (NEGATIVE); Cocaine Screen, Urine Neg (NEGATIVE); Phencyclidine Screen, Urine Neg (NEGATIVE)
--- NOTE | 2024-06-23 07:26 | ECG ---
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
[2024-06-23 08:00] VITALS: PULSE 89; RESP 15; O2SAT 99
[2024-06-23 08:20] VITALS: TEMP 98.4
[2024-06-23] MEDS: ENOXAPARIN SOD 40 MG/0.4 ML SYRINGE SC SCH (10:00)
[2024-06-23 12:03] VITALS: BP 144/87; PULSE 86; RESP 17; O2SAT 99
--- NOTE | 2024-06-23 12:36 | DVHDS2 ---
Discharge Summary Date of Admission Jun 22, 2024 at 15:33 Date of Discharge: Jun 23, 2024 Admitting Diagnosis Toxic metabolic encephalopathy Labs/Diagnostic Data: Laboratory Results Test 06/23/24 08:48 06/23/24 05:08 06/23/24 04:04 06/22/24 12:57 POC Glucose 91 mg/dl (70-106) Urine Color Light-yellow (Yellow) Urine Clarity Clear (Clear) Urine pH 7.0 (5.0-9.0) Urine Specific [place] 1.010 (1.001-1.035) Urine Protein Negative (Negative) Urine Ketones Trace (Negative) Urine Blood Negative /uL (Negative) Urine Nitrite Negative (Negative) Urine Bilirubin Negative (Negative) Urine Urobilinogen Normal mg/dL (Negative) Urine Leukocyte Esterase Negative /uL (Negative) Urine RBC 3 /hpf (0 - 3) Urine WBC 2 /hpf (0 - 3) Urine Squamous Epithelial Cells Few /hpf (<5) Urine Bacteria None seen /hpf (None Seen) Urine Mucus Few (None Seen) Urine Glucose Normal mg/dL (Normal) Urine Opiates Screen Pos (NEGATIVE) Urine Fentanyl Screen Neg (NEGATIVE) Urine Barbiturates Screen Neg (NEGATIVE) Urine Phencyclidine Screen Neg (NEGATIVE) Urine Amphetamines Screen Neg (NEGATIVE) Urine Benzodiazepines Screen Neg (NEGATIVE) Urine Cocaine Screen Neg (NEGATIVE) Urine Cannabinoids Screen Neg (NEGATIVE) White Blood Count 8.9 10^3/uL (4.4-10.8) Red Blood Count 4.52 10^6/uL (4.5-5.90) Hemoglobin 11.2 g/dL (13.5-17.5) Hematocrit 34.7 % (41.0-53.0) Mean Corpuscular Volume 76.8 fL (80.0-100.0) Mean Corpuscular Hemoglobin 24.8 pg (28.0-32.0) Mean Corpuscular Hemoglobin Concent 32.2 g/dL (32.0-36.0) Red Cell Distribution Width 17.3 % (11.8-14.3) Platelet Count 373 10^3/uL (140-450) Mean Platelet Volume 6.3 fL (6.9-10.8) Neutrophils (%) (Auto) 69.4 % (37.0-80.0) Lymphocytes (%) (Auto) 22.2 % (10.0-50.0) Monocytes (%) (Auto) 7.4 % (0.0-12.0) Eosinophils (%) (Auto) 0.4 % (0.0-7.0) Basophils (%) (Auto) 0.6 % (0.0-2.0) Neutrophils # (Auto) 6.2 10 ^3/uL (1.6-8.6) Lymphocytes # (Auto) 2.0 10 ^3/uL (0.4-5.4) Monocytes # (Auto) 0.7 10 ^3/uL (0-1.3) Eosinophils # (Auto) 0 10 ^3/uL (0-0.8) Basophils # (Auto) 0 10 ^3/uL (0-0.2) Nucleated Red Blood Cells 0.0 % Sodium Level 144 mmol/L (136-145) Potassium Level 3.5 mmol/L (3.5-5.1) Chloride Level 115 mmol/L (98-107) Carbon Dioxide Level 23 mmol/L (20-31) Anion Gap 6 (5-15) Blood Urea Nitrogen < 5 mg/dL (9-23) Creatinine 0.83 mg/dL (0.700-1.30) Glomerular Filtration Rate Calc 105 mL/min (>90) BUN/Creatinine Ratio 6.0 (10.0-20.0) Serum Glucose 97 mg/dL (74-106) Calcium Level 9.6 mg/dL (8.7-10.4) Total Bilirubin 0.7 mg/dL (0.2-1.0) Aspartate Amino Transferase (AST) 19 U/L (13-40) Alanine Aminotransferase (ALT) < 9 U/L (7-40) Alkaline Phosphatase 95 U/L (46-116) Total Protein 6.4 g/dL (5.7-8.2) Albumin 3.9 g/dL (3.2-4.8) Ammonia 15 umol/L (11-32) Test 06/22/24 10:05 06/22/24 09:05 Troponin I High Sensitivity < 3 ng/L (</=54) Prothrombin Time 10.9 sec (9.3-11.8) Prothrombin Time INR 1.03 (0.9-1.15) Activated Partial Thromboplast Time 32.1 SEC (24.5-34.5) Magnesium Level 2.0 mg/dL (1.6-2.6) B-Type Natriuretic Peptide 21.45 pg/mL (0-100) Other Laboratory Tests 06/23/24 04:04 Brief Hx & Hospital Course: History of Present Illness This 53 year old male presents in the ED with a chief complaint of ALOC. The patient is alert and oriented to name and date of but somehow confused, very sleepy, and unable to keep eyes open. According to nursing staff, the patient was last seen alert and oriented this morning around 1:00 a.m. the patient change of mentation started early this morning, sister states that the patient started taking some type of medications. Course of hospitalization: Patient's medications were reviewed that he was prescribed via pharmacy database, with noted multiple narcotics as well as psychiatric medications provided by pain management and Psychiatry. Probable underlying etiology for patient's ALOC. Discussed this with the patient who continues to be only alert and oriented to person, place, unable to state what year it is. Patient denies any symptoms at this time. Patient, states that we do not have a right to keep him in the hospital. Patient also states, that he was aware that he was unresponsive and that is the reason why his mother called the ambulance to have him coming to the hospital.. Patient request to leave against medical advice. Patient instructed to continue current treatment and allow prescribed medications to run their course, given polypharmacy with probable unintentional overdose with prescribed medications. This time the patient wishes to leave AMA. All questions answered. Physical examination General: Alert and Oriented x3. No acute distress. Well-nourished. Eyes: EOMI. Anicteric. HENT: Moist mucous membranes. Lungs: Clear to auscultation bilaterally. No accessory muscle use. Cardiovascular: Regular rate and rhythm. No murmur. No JVD. Abdomen: Soft, non-tender and non-distended. No palpable masses. Extremities: No edema. Non-tender. Skin: No rashes or lesions. Warm. Neurologic: No focal neurological deficits. CN II-XII grossly intact, but not individually tested. Psychiatric: Cooperative. Appropriate mood and affect. Total time spent with patient discussing and formulating plan of care: 35 minutes. This medical document was created using an electronic medical record system with [employer] dictation system. Although this document has been carefully reviewed, there may still be some phonetic and typographical errors. These areas are purely typographical due to imperfections of the software programs, and do not reflect any compromise in the patient's medical care. Consults/Reason for consult Neurology: Rule out CVA Condition at Discharge: Poor Final Diagnosis/Problems List Toxic metabolic encephalopathy secondary to prescribed narcotics and antipsychotic medications Secondary Diagnosis: Anxiety disorder -depression -history of CVA -primary hypertension Discharge Disposition: AMA 36 Discharge Statement: "Patient was advised to return to the ER or call 911 if any headaches, dizziness, shortness of breath, chest pain, abdominal pain, bleeding, fevers, or worsening of medical condition. Patient was counseled about treatment plan, medications, possible side effects, patientverbalized understanding. All questions were answered to the best of my ability. This discharge took greater then 30 minutes in planning, reviewing documentation, counseling the patient, and discussing with other team members." ASSESSMENT ASSESSMENT Assessment Date of Service: Jun 23, 2024 Billing Provider: EMERY DIAS NP Common Visit Codes: 53088-FHI/OBS DISCH DAY >30min EMERY DIAS NP Jun 23, 2024 12:36
== END 2024-06-23 12:40 | disposition left against medical advice (07) | DRG 52 ==
LOC: ER 08:36 → EDBD 08:36 → TELE 15:33
PROVIDERS: ADMIT Registered Nurse; ATTEND Nurse Practitioner Acute Care
DX: G92.8 Other toxic encephalopathy (principal); F17.210 Nicotine dependence, cigarettes, uncomplicated; F32.A Depression, unspecified; Z53.29 Procedure and treatment not carried out because of patient's decision for other reasons; F41.9 Anxiety disorder, unspecified; T40.605A Adverse effect of unspecified narcotics, initial encounter; T43.595A Adverse effect of other antipsychotics and neuroleptics, initial encounter; I10 Essential (primary) hypertension; Z86.73 Personal history of transient ischemic attack (TIA), and cerebral infarction without residual deficits; Z87.442 Personal history of urinary calculi; Y92.89 Other specified places as the place of occurrence of the external cause; Z79.899 Other long term (current) drug therapy
CPT/HCPCS: 36415; 70450; 71045; 80053; 80307; 81001; 82140; 82962; 83735; 83880; 84484; 85025; 85610; 85730; 93005; 99291; G0378